=== PATIENT | female | born 1950 | race Caucasian/White ===

== ENCOUNTER 2019-07-12 18:33 | Emergency (ER) | payer MEDICARE, BC ==
[2019-07-12 19:12] LABS: ABSOLUTE EOSINOPHILS # (AUTO) 0.1 10^3/uL (0.0-0.6); ABSOLUTE LYMPHOCYTES (AUTO) 1.8 10^3/uL (0.5-4.7); ABSOLUTE MONOCYTES (AUTO) 0.5 10^3/uL (0.1-1.4); ABSOLUTE NEUT (AUTO) 3.2 10^3/uL (1.7-8.2); BASOPHILS % (AUTO) 0.3 % (0-2); EOSINOPHILS % (AUTO) 1.7 % (0-6); HEMATOCRIT 39.7 % (36.0-47.0); HEMOGLOBIN 13.6 g/dL (12.0-15.5); LYMPHOCYTES % (AUTO) 32.4 % (13-45); MEAN CORPUSCULAR HEMOGLOBIN 32.2 pg (27.0-33.4); MEAN CORPUSCULAR HGB CONC 34.3 g/dL (32.0-36.0); MEAN CORPUSCULAR VOLUME 94 fl (80-97); MONOCYTES % (AUTO) 8.3 % (3-13); PLATELET COUNT 175 10^3/uL (150-450); RED BLOOD COUNT 4.23 10^6/uL (3.72-5.28); RED CELL DISTRIBUTION WIDTH 13.3 % (11.5-14.0); SEGMENTED NEUTROPHILS % (AUTO) 57.3 % (42-78); TOTAL CELLS COUNTED % (AUTO) 100 %; WHITE BLOOD COUNT 5.7 10^3/uL (4.0-10.5)
--- NOTE | 2019-07-12 19:25 | RADIOLOGY REPORT (SQ) ---
EXAM DESCRIPTION: CHEST SINGLE VIEW IMAGES COMPLETED DATE/TIME: 07/12/2019 7:17 pm REASON FOR STUDY: cp COMPARISON: None. EXAM PARAMETERS: NUMBER OF VIEWS: One view. TECHNIQUE: Single frontal radiographic view of the chest acquired. RADIATION DOSE: NA LIMITATIONS: None. FINDINGS: LUNGS AND PLEURA: No opacities, masses or pneumothorax. No pleural effusion. MEDIASTINUM AND HILAR STRUCTURES: No masses. Contour normal. HEART AND VASCULAR STRUCTURES: Heart normal in size. Normal vasculature. BONES: No acute findings. HARDWARE: None in the chest. OTHER: No other significant finding. IMPRESSION: NO ACUTE RADIOGRAPHIC FINDING IN THE CHEST. TECHNICAL DOCUMENTATION: JOB ID: [id number] [employer]- All Rights Reserved Reading location - IP/workstation name: [email or web address]
[2019-07-12 19:31] LABS: ALBUMIN 4.5 g/dL (3.5-5.0); ALKALINE PHOSPHATASE 77 U/L (38-126); ANION GAP 7 (5-19); ASPARTATE AMINO TRANSFERASE 27 U/L (14-36); BILIRUBIN,TOTAL 0.6 mg/dL (0.2-1.3); BLOOD UREA NITROGEN 22 mg/dL (7-20); CALCIUM 9.3 mg/dL (8.4-10.2); CARBON DIOXIDE 26 mmol/L (22-30); CHLORIDE 106 mmol/L (98-107); CREATINE KINASE < 20 U/L (30-135); GLUCOSE 105 mg/dL (75-110); POTASSIUM 4.1 mmol/L (3.6-5.0); TOTAL PROTEIN 7.6 g/dL (6.3-8.2)
[2019-07-12] MEDS ORDERED: NITROGLYCERIN 2% OINTMENT 1 GM PACKET TP ONE (19:36)
[2019-07-12] MEDS ORDERED: ONDANSETRON HCL INJ/PF 4 MG/2 ML SDV IV ONE ×2 (19:37→22:55)
[2019-07-12] MEDS ORDERED: MORPHINE SULFATE 10 MG/ML INJ IV ONE ×2 (19:37→22:52)
[2019-07-12 19:41] LABS: CREATINE KINASE MB 0.71 ng/mL (<4.55)
[2019-07-12 19:46] LABS: TROPONIN I < 0.012 ng/mL
--- NOTE | 2019-07-12 20:00 | EKG REPORT ---
SEVERITY:- NORMAL ECG - SINUS RHYTHM : Confirmed by: Sandra Akers MD 12-Jul-2019 19:59:45
[2019-07-12] MEDS ORDERED: HEPARIN SOD (PORCINE) 1,000 UNIT/ML 10 ML VIAL IV ONE (22:47)
[2019-07-12] MEDS ORDERED: HEPARIN SODIUM,PORCINE/D5W 25,000 UNIT/250 ML RTUINJ IV PRN (22:50)
--- NOTE | 2019-07-12 23:57 | ER Document Report ---
ED Cardiac - General Chief Complaint: Chest Pain Stated Complaint: CHEST PAIN Time Seen by Provider: 07/12/19 19:09 Mode of Arrival: Medic Information source: Patient Notes: This 68-year-old woman presents to the emergency department with a history of chest pain which began at approximately 2:30 in the afternoon. She described the pain is substernal radiating into her jaw and neck and into the arms bilaterally. She also notes that the pain radiates into her back. She rates the pain a 7/10. EMS was called and the patient was transported to the emergency department. Patient was given sublingual nitroglycerin x2 and aspirin and the EMS pain which was 7/10 reduced to 5/10. Patient is visiting the area from [place] apparently has had a history of CAD with stents x11 in the past. She states her latest it was approximately 1 year ago in which she had a stent placed in her " maker". She continues to have chest pain which she rates 5/10. EKG performed in the emergency department reveals a sinus rhythm rate of 68 with T wave flattening in the anterior leads. - Related Data Allergies/Adverse Reactions: codeine Allergy (Verified 07/12/19 20:13) iodine Allergy (Verified 07/12/19 20:13) tramadol Allergy (Verified 07/12/19 20:13) walnut Allergy (Verified 07/12/19 20:13) Past Medical History - Social History Smoking Status: Unknown if Ever Smoked Frequency of alcohol use: None Drug Abuse: None Family History: Reviewed & Not Pertinent Patient has suicidal ideation: No Patient has homicidal ideation: No Review of Systems - Review of Systems Notes: Constitutional: Negative for fever. HENT: Negative for sore throat. Eyes: Negative for visual changes. Cardiovascular: + Chest pain. Respiratory: Negative for shortness of breath. Gastrointestinal: Negative for abdominal pain, vomiting or diarrhea. Genitourinary: Negative for dysuria. Musculoskeletal: Negative for back pain. Skin: Negative for rash. Neurological: Negative for headaches, weakness or numbness. 10 point ROS negative except as marked above and in HPI. Physical Exam - Vital signs Vitals: Pulse Ox 100 07/12/19 18:39 - Notes Notes: PHYSICAL EXAMINATION: Physical Exam: General: Well-nourished well-developed 88-year-old woman in mild distress secondary to substernal chest pain HEENT: NC/AT, pupils equal round and reactive to light, MM moist,nares clear, oropharynx clear, airway patent Neck: supple, no adenopathy, no masses. Good range of motion Lungs: clear, no wheezing, no rales no rhonchi CVS: Regular rate and rhythm no murmur gallop or rub Abdomen: Soft, active, nontender, no masses, no hepatosplenomegaly Ext: No edema, clubbing or cyanosis. Neuro: Alert and responsive, moving all 4 extremities on command, cranial nerves intact, no focal findings Skin: Intact no open lesions, no rash PSYCH: Normal mood, normal affect. Course - Re-evaluation Re-evalutation: 07/13/19 00:08 Patient presented with substernal chest pain and a significant coronary artery disease history. Multiple stents placement on 3 separate occasions. She is a hypertensive, presently on Xarelto, history of A. fib during her last stenting procedure., Patient also notes a history of pulmonary embolus and was treated with Coumadin few years ago. Troponin is negative, however chest pain continues. Patient has been given 2 doses of morphine, nitroglycerin paste, she is awaiting repeat troponin. 07/13/19 02:03 Given a continued chest pain and history of multiple stent placements in the past, patient is being transferred to [facility] in [facility], she has been accepted by the cardiology group. Second troponin is also negative, chest pain is decreased to 2/10. I have discussed that plan with the patient and she is in agreement. - Vital Signs Vital signs: Temp Pulse Resp BP Pulse Ox 20 110/92 H 99 07/13/19 00:21 07/13/19 00:21 07/13/19 00:21 - Laboratory Result Diagrams: 07/12/19 18:43 07/12/19 18:43 Laboratory results interpreted by me: 07/12/19 07/13/19 18:43 00:45 PT 16.8 H APTT 37.1 H BUN 22 H Creatine Kinase < 20 L - Diagnostic Test Radiology reviewed: Image reviewed, Reports reviewed - No acute cardiopulmonary findings. - EKG Interpretation by Me EKG shows normal: Sinus rhythm Rate: Normal - Rate of 68, no acute ST or T wave abnormalities noted. Discharge - Discharge Clinical Impression: Unstable angina, History of coronary artery disease, History of coronary artery stent placement Condition: Good Disposition: [facility]
[2019-07-13 01:07] LABS: INTERNATIONAL RATION (INR) 1.35; PROTHROMBIN TIME 16.8 SEC (11.4-15.4)
[2019-07-13 01:08] LABS: PARTIAL THROMBOPLASTIN TIME 37.1 SEC (23.5-35.8)
[2019-07-13] MEDS: FENTANYL CITRATE INJ/PF 100 MCG/2 ML AMPUL IV PRN ×2 (01:15→06:00)
[2019-07-13 06:29] VITALS: BP 110/54
--- NOTE | 2019-07-13 10:07 | EKG REPORT ---
SEVERITY:- NORMAL ECG - SINUS RHYTHM : Confirmed by: Sandra Akers MD 13-Jul-2019 10:06:53
== END 2019-07-13 06:31 | disposition short-term general hospital (02) ==
LOC: ER 18:33
DX: I20.0 Unstable angina (principal); R07.9 Chest pain, unspecified; Z88.6 Allergy status to analgesic agent; Z79.02 Long term (current) use of antithrombotics/antiplatelets; Z86.711 Personal history of pulmonary embolism
CPT/HCPCS: 93005; 96376; 99285; 96374; 96375; 36415; 82553; 82550; 85025; 85610; 85730; 80053; 84484; 71045; 93010; A9270; J3010; J2270 ×2; J2405 ×2; J1644